=== PATIENT | female | born 1985 | race Caucasian/White ===

== ENCOUNTER 2016-06-09 00:06 | Emergency (ER) | payer OTHER ==
[~2016-06-09] VITALS: Ht 162.6 cm; Wt 56.8 kg
[2016-06-09 00:11] VITALS: BP 133/87; PULSE 104; RESP 16; O2SAT 97
--- NOTE | 2016-06-09 00:27 | ED.REPORT ---
HPI-Abd Pain F Under 40 Date of Service Jun 09, 2016 ED Provider: Jorge Alberto Bustillo MD A 31 year old female presents to the ED complaining of vomiting that began 26 hours ago. Associated symptoms include diarrhea and headache. Recent sick contacts include and son. They both experienced 6-7 episodes of diarrhea. Patient's last menstrual cycle was approx. 3 weeks ago. She typically has irregular menses. Patient denies hematochezia. Nursing Notes Stated Complaint: VOMITING Chief Complaint: Female Abdominal Pain Nursing Notes Reviewed: Yes Allergies: Coded Allergies: No Known Allergies (Unverified , 06/09/16) Scheduled PRN Ondansetron ODT (Zofran ODT) 4 Mg Tablet 4 MG PO Q4H PRN PRN For Nausea General Time Seen by MD: 00:26 Chief Complaint Vomiting moderate Hx Obtained From: Patient Arrived By: Walk-in Sudden in Onset?: No Onset Occurred: 1 day ago Symptom Duration: Since onset Progression since Onset: Unchanged Associated with: Reports: Diarrhea, Vomiting Pertinent Negative: Pt denies other symptoms Recent Healthcare: No recent doctor visit, No recent hospitalization Past Medical History Past Medical History Notes: No PCP Past Medical History None reported. Past Surgical History None reported. Smoking History Unknown if Ever Smoker Social History Pt recently moved to [facility] from [place] Other Social History: Good social support, , Local resident Ambulatory Status Independent Review of Systems Constitutional: Denies: Chills, Fever Respiratory: Denies: Shortness of breath Cardiovascular: Denies: Chest pain GI: Reports: Diarrhea, Nausea, Vomiting Complete sys rev & neg: except as marked. Neurologic: Reports: Headache, Denies: Change LOC Physical Exam Initial Vital Signs Vital Signs (First) Date Time Temp Pulse Resp B/P Pulse Ox O2 Delivery O2 Flow Rate FiO2 06/09/16 00:11 36.6 104 16 133/87 97 Room Air Initial VS: Reviewed Head / Eyes: Atraumatic, Normocephalic, PERRL Extremities: Vascular intact, Neuro intact, No swelling, No tenderness Skin: Warm, Dry, No cyanosis Neurologic: Alert, Oriented, Nonfocal Psychiatric: Mood/affect normal, Behavior normal, Normal thought content General/Constitutional: Awake, Alert Respiratory / Chest: Atraumatic, Breath sounds NL, Breath sounds = bilat Cardiovascular: Heart rate NL, Regular rhythm, Heart sounds NL, No gallop, No murmurs, No rubs Abdomen: Atraumatic, Soft, Non-tender, BS normoactive Back: Atraumatic, Inspection NL, No CVA tenderness ENT: Atraumatic, Airway patent, Mucous membranes moist Skin: Atraumatic, Color NL, Warm, Dry, Intact Interpretation & Diagnostics Lab Results Interpretation Result Diagram: 06/09/16 0040 06/09/16 0040 Test 06/09/16 00:40 06/09/16 01:14 White Blood Count 7.4th/mm3 (3.8-10.1) Red Blood Count 4.38mil/mm3 (3.90-5.20) Hemoglobin 13.3g/dL (12.0-15.6) Hematocrit 40.2% (35.0-46.0) Mean Corpuscular Volume 91.8fL (81-100) Mean Corpuscular Hemoglobin 30.4pg (27.0-35.0) Mean Corpuscular Hemoglobin Concent 33.1% (32.0-37.0) Red Cell Distribution Width 12.0% (12.3-15.4) Platelet Count 240bil/L (150-400) Neutrophils (%) (Auto) 84.2% (40-74) Lymphocytes (%) (Auto) 8.6% (14-46) Monocytes (%) (Auto) 6.9% (4-12) Eosinophils (%) (Auto) 0.1% (0-5) Basophils (%) (Auto) 0.1% (0-3) Sodium Level 139mEq/L (134-144) Potassium Level 3.7mEq/L (3.5-5.2) Chloride Level 99mEq/L (97-108) Carbon Dioxide Level 24mmol/L (18-29) Blood Urea Nitrogen 16mg/dL (6-20) Creatinine 0.67mg/dL (0.57-1.00) Estimat Glomerular Filtration Rate 148mL/min (>59) Glucose Level 112mg/dL (60-99) Calcium Level 9.2mg/dL (8.5-10.1) Magnesium Level 2.0mg/dL (1.6-2.6) Total Bilirubin 0.7mg/dL (0.0-1.2) Aspartate Amino Transf (AST/SGOT) 15U/L (0-50) Alanine Aminotransferase (ALT/SGPT) 15U/L (0-32) Alkaline Phosphatase 56U/L (25-150) Total Protein 7.7g/dL (6.4-8.4) Albumin 4.5g/dL (3.4-5.0) Lipase 12U/L (13-60) Hold [place] Top Tube Received (Received) Hold Urine Received (Received) Lab Results Interpretation: Urine Dip : Negative SP [place] 1.030 pH 5 Protein trace Glucose normal Ketones +++ Urobilinogen normal + Bilirubin Trace blood Re-Eval/Medical Decision Re-Evaluation/Progress #1: Time of Eval: 01:27 Patient Status: Pain improved Re-Evaluation/Progress Note: Patient is rechecked. She states that her headache is still present but her symptoms have improved. Oral challenge assigned Re-Evaluation/Progress #2: Time of Eval: 01:40 Patient Status: Condition improved Re-Evaluation/Progress Note: Patient is rechecked. Oral challenge passed. She is informed of her lab results and discharge treatment plan. Patient's questions are addressed. She understands and agrees with plan. Counseled Regarding: Diagnosis, Lab results, Need for follow-up, When/why to return to ED Discharge & Departure Primary Impression: Vomiting Vomiting type: unspecified Vomiting Intractability: non-intractable Nausea presence: with nausea Qualified Code: R11.2 - Nausea with vomiting, unspecified Disposition: Home Discharge Condition All VS Reviewed: Yes Condition: Stable Patient Instructions: Gastroenteritis (ED) Additional Instructions: Emergency Department evaluation included interview, examination and labs. Treatment included IV fluids and IV antinausea medications. This illness is almost certainly an acute viral stomach and intestinal infection that will not require specific treatment other than symptom control and resolve in 3-5 days. May use ondansetron as needed for nausea and vomiting. Rest and get adequate fluids, electrolyte replacement such as Gatorade is desirable. Wash hands carefully after using the bathroom may use Imodium available without prescription as needed if having diarrhea. Return to emergency department for uncontrolled vomiting, increasing abdominal pain blood in diarrhea. Call [facility] resident's clinic visit urgent care for follow-up if not improving within 4 days. Referrals: [facility] Scribe Attestation Portions of this note were transcribed by Arnol Hinkle. I, Dr. Slack personally performed the history, physical exam and medical decision-making; I reviewed and confirmed the accuracy of the information in the transcribed note. Signed by: Rachael Haile, 06/09/16 0140. Jorge Alberto Bustillo MD Jun 09, 2016 00:27 ARNOL HINKLE Jun 09, 2016 00:37
[2016-06-09] MEDS ORDERED: 0.9% Sodium Chloride 1,000 ML IV ONE (00:30)
[2016-06-09] MEDS: Ondansetron 2 mg/mL 2 mL Inj IVPUSH PRN ×2 (00:50→02:00)
[2016-06-09 01:01] LABS: BASOPHILS % (AUTO) 0.1 % (0-3); EOSINOPHILS % (AUTO) 0.1 % (0-5); MONOCYTES % (AUTO) 6.9 % (4-12); Mean Corpuscular Hemoglobin 30.4 pg (27.0-35.0); Mean Corpuscular Volume 91.8 fL (81-100); NEUTROPHILS % (AUTO) 84.2 % (40-74); Platelet Count 240 bil/L (150-400)
[2016-06-09] MEDS ORDERED: ONDA4TAB9 PO (01:34)
[2016-06-09 02:52] VITALS: BP 104/64; PULSE 85; RESP 14; O2SAT 97
== END 2016-06-09 02:54 | disposition home or self-care (01) ==
LOC: EDBD 00:06 → SED 00:06
DX: R11.2 Nausea with vomiting, unspecified (principal); R19.7 Diarrhea, unspecified; R51 Headache
CPT/HCPCS: 36415; 80053; 81025; 83690; 83735; 85025; 96361; 96374; 96375; 96376; 99284; J2405; J7030